=== PATIENT | male | born 1990 | race Two or more races ===

== ENCOUNTER 2023-08-12 03:06 | Emergency (ER) | payer BC ==
[2023-08-12 03:13] VITALS: TEMP 97.6; BMI 40.3
[2023-08-12] MEDS ORDERED: ACETAMINOPHEN INJECTION 100 ML IVPB ONE (03:42)
[2023-08-12] MEDS: ACETAMINOPHEN 1000 MG/100 ML BAG IVPB ONE (04:01)
[2023-08-12 04:14] LABS: BASO % 0.5 % (0-2.0); EOS % 1.7 % (0-4.5); HEMATOCRIT 41.1 % (35.4-49); HEMOGLOBIN 14.2 GM/dL (11.7-16.9); LYMPH % 30.5 % (8-40); MCHC 34.6 g/dl (32.0-35.9); MEAN CELL VOLUME 86.7 fl (80-96); MEAN PLT VOLUME 8.9 fl (7.5-11.1); MONO % 11.9 % (3.8-10.2); NEUT % 55.4 % (42.8-82.8); PLATELET COUNT 226 10^3/uL (134-434); RBC 4.74 M/mm3 (4.00-5.60); RDW 13.8 % (11.9-15.9); WHITE BLOOD COUNT 7.5 K/mm3 (4.0-10.0)
[2023-08-12 04:31] LABS: POTASSIUM 3.6 mmol/L (3.5-5.1)
[2023-08-12 04:33] LABS: CALCIUM 8.4 mg/dL (8.5-10.1)
[2023-08-12 04:34] LABS: BLOOD UREA NITROGEN 10.8 mg/dL (7-18)
[2023-08-12 04:37] LABS: CREATININE 1.1 mg/dL (0.55-1.3)
[2023-08-12 04:39] LABS: BILIRUBIN,TOTAL 0.6 mg/dL (0.2-1); TOT PROT 7.6 g/dl (6.4-8.2)
[2023-08-12 05:45] VITALS: BP 117/65; PULSE 64; RESP 18
== END 2023-08-12 07:07 | disposition home or self-care (01) ==
LOC: JER 03:06
PROC: 3E033NZ Introduction of Analgesics, Hypnotics, Sedatives into Peripheral Vein, Percutaneous Approach (ICD-10-PCS; principal; 2023-08-12)
DX: R07.9 Chest pain, unspecified (principal); R06.02 Shortness of breath; Z20.822 Contact with and (suspected) exposure to COVID-19
CPT/HCPCS: 0241U-QW; 36415; 71046-TC-FY; 80053; 84484; 85025; 93005; 93010; 96374; 99285-25; J0131